=== PATIENT | female | born 1960 | race Caucasian/White ===

== ENCOUNTER 2016-06-26 10:14 | Day surgery (SDC) | payer BC ==
--- NOTE | ~2016-06-26 | EGD ---
EGD REPORT [facility] [address] [id number] NAME: GIDEON KNUTSON : [birth year] STATUS : REG [facility]#: [id number] AGE: 55 ADM/REG DATE : 06/26/16 MR#: [id number] REPORT SERV DATE: 06/26/16 DICTATED BY: GENA YAP DATE: 06/26/16 REPORT STATUS : Draft TRANSCRIBED BY: [facility] DATE: 06/26/16 [facility] Patient Name: Gideon Knutson Date of : 1960 Attending MD: GENA YAP MD Procedure Date No Time: 06/26/2016 Procedure: Colonoscopy Indications: Screening for colorectal malignant neoplasm, Last colonoscopy remote past Referring MD: Aida Westbrook Medicines: See the Anesthesia note for documentation of the administered medications Complications: No immediate complications. Procedure: Pre-Anesthesia Assessment: - ASA Grade Assessment: III - A patient with severe systemic disease. After I obtained informed consent, the scope was passed under direct vision. Throughout the procedure, the patient's blood pressure, pulse, and oxygen saturations were monitored continuously. The CF [id number] was introduced through the anus and advanced to the cecum, identified by appendiceal orifice and ileocecal valve. The patient tolerated the procedure well. The quality of the bowel preparation was adequate. The colonoscopy was technically difficult and complex due to a tortuous colon. Findings: The perianal and digital rectal examinations were normal. Internal hemorrhoids were found during retroflexion and were small. A sessile polyp was found in the ascending colon. The polyp was small in size. The polyp was removed with a cold biopsy forceps. Resection and retrieval were complete. A sessile polyp was found in the rectum. The polyp was small in size. The polyp was removed with a cold biopsy forceps. Resection and retrieval were complete. Impression: - Internal hemorrhoids. - One small polyp in the ascending colon. Resected and retrieved. - One small polyp in the rectum. Resected and retrieved. Recommendation: - Patient has a contact number available for emergencies. The signs and symptoms of potential delayed complications were discussed with the patient. Return to EGD REPORT [address] [id number] NAME: GIDEON KNUTSON : [birth year] STATUS : REG [facility] PAT#: [id number] AGE: 55 ADM/REG DATE : 06/26/16 MR#: [id number] REPORT SERV DATE: 06/26/16 DICTATED BY: GENA YAP DATE: 06/26/16 REPORT STATUS : Draft TRANSCRIBED BY: [employer] DATE: 06/26/16 normal activities tomorrow. Written discharge instructions were provided to the patient. - Regular diet. - Continue present medications. - Repeat colonoscopy for surveillance based on pathology results. - FOR YOUR BIOPSY RESULTS: Please go to [email or web address] and register to receive your results via the portal. Your biopsy results will be posted there in about 7 to 10 days. IF you do not see result in 10 days, call office. Procedure Code(s): --- Professional --- 52366, Colonoscopy, flexible, proximal to splenic flexure; with biopsy, single or multiple Diagnosis Code(s): --- Professional --- K64.8, Other hemorrhoids K62.1, Rectal polyp D12.2, Benign neoplasm of ascending colon Z12.11, Encounter for screening for malignant neoplasm of colon CPT copyright 2013 [employer]. All rights reserved. The codes documented in this report are preliminary and upon automobile radio repairer review may be revised to meet current compliance requirements. Gena Yap MD GENA YAP MD 06/26/2016 2:00 PM This report has been signed electronically. Number of Addenda: 0 Note Initiated On: 06/26/2016 1:30 PM Scope Withdrawal Time 0 hours 6 minutes 29 seconds [id number] [id number]
[~2016-06-26 10:14] MED LIST: ACETYL CARNITINE PO; ALPHA LIPOIC300 MG PO; ASTELIN NAS; ATROVENT HFA17 MCG INH; CA-MG-ZINC PO; CYMBALTA20 PO; LIBRAX PO; MIRAPEX250 PO; NEUR600 PO; NEXIUM40 PO; PRAVAC PO; PRIN10 PO; QVAR80 MCG INH; SPIRO50 PO; TOPAMAX100 PO; VITC500 PO; ZYRTEC ALLGY10 MG PO; [UNRECOGNIZED DRUG - OTHER] PO
== END 2016-06-26 23:59 | disposition home or self-care (01) ==
LOC: DMU 10:14
PROVIDERS: Internal Medicine Gastroenterology
PROC: 0DBP8ZZ Excision of Rectum, Via Natural or Artificial Opening Endoscopic (ICD-10-PCS; 2016-06-26)
PROC: 0DBK8ZZ Excision of Ascending Colon, Via Natural or Artificial Opening Endoscopic (ICD-10-PCS; principal; 2016-06-26 11:30)
DX: Z12.11 Encounter for screening for malignant neoplasm of colon (principal); D12.2 Benign neoplasm of ascending colon; K62.1 Rectal polyp; K64.8 Other hemorrhoids; E11.9 Type 2 diabetes mellitus without complications; F32.9 Major depressive disorder, single episode, unspecified; M79.7 Fibromyalgia; J45.909 Unspecified asthma, uncomplicated; F41.9 Anxiety disorder, unspecified; M19.90 Unspecified osteoarthritis, unspecified site; G43.909 Migraine, unspecified, not intractable, without status migrainosus; I10 Essential (primary) hypertension; G47.33 Obstructive sleep apnea (adult) (pediatric); K21.9 Gastro-esophageal reflux disease without esophagitis; Z79.899 Other long term (current) drug therapy
CPT/HCPCS: 82962; 88305